=== PATIENT | male | born 1965 | race African-American/Black ===

== ENCOUNTER 2021-09-10 19:50 | Emergency (ER) | payer MEDICARE, MEDICAID ==
[~2021-09-10] VITALS: Ht 182.9 cm; Wt 76.0 kg
[2021-09-10 21:05] LABS: BASOPHILS % 0.2 % (0.0-2.0); EOSINOPHILS % 0.2 % (0.0-5.0); HEMATOCRIT. 36.4 % (42.0-52.0); HEMOGLOBIN. 12.2 g/dL (14.0-18.0); LYMPHOCYTES % 11.1 % (20.0-50.0); MEAN CORPUSCULAR HEMOGLOBIN 30.3 pg (28.0-32.0); MEAN CORPUSCULAR VOLUME 90.5 fL (80.0-94.0); MEAN PLATELET VOLUME 7.7 fl (7.4-10.4); MONOCYTES % 6.3 % (2.0-8.0); NEUTROPHILS % 82.2 % (40.0-76.0); PLATELET 285 x1000/uL (130-400); RED BLOOD CELL COUNT 4.02 mill/uL (4.7-6.1); RED CELL DISTRIBUTION WIDTH 16.5 % (11.6-14.6)
[2021-09-10 21:11] LABS: CHLORIDE 111 mEq/L (98-107)
[2021-09-10 21:19] LABS: ETHANOL BLOOD < 10 mg/dL
[2021-09-10 22:14] LABS: CLARITY URINE CLEAR (CLEAR); COLOR URINE YELLOW (YELLOW); KETONES URINE 2+ (NEGATIVE); LEUKOCYTE ESTERASE URINE NEGATIVE (NEGATIVE); NITRITE URINE NEGATIVE (NEGATIVE); OCCULT BLOOD URINE NEGATIVE (NEGATIVE); PH URINE 6.5 (4.5-8.0); PROTEIN URINE NEGATIVE (NEGATIVE); SPECIFIC GRAVITY URINE 1.024 (1.005-1.030)
[2021-09-10] MEDS ORDERED: HALOPERIDOL LACTATE 5MG/ML VIAL IM ONE (22:45)
[2021-09-10] MEDS ORDERED: LORAZEPAM 2MG/ML CPJ IM ONE (22:45)
[2021-09-10 22:56] LABS: *AMPHETAMINES SCREEN URINE NEGATIVE (NEGATIVE); *BARBITURATES SCREEN URINE NEGATIVE (NEGATIVE); *BENZODIAZEPINES SCREEN URINE PRESUMTIVE POSITIVE (NEGATIVE); *COCAINE SCREEN URINE NEGATIVE (NEGATIVE); CANNABINOID URINE SCREEN PRESUMTIVE POSITIVE (NEGATIVE); METHADONE URINE SCREEN NEGATIVE (NEGATIVE); OPIATES URINE SCREEN NEGATIVE (NEGATIVE); PHENCYCLIDINE URINE SCREEN NEGATIVE (NEGATIVE)
[2021-09-10] MEDS ORDERED: OLANZAPINE 10 MG/VIAL IM STA (22:56)
[2021-09-10] MEDS ORDERED: DEXTROSE 50% WATER 50ML SYRINGE IV ONE (23:30)
[2021-09-11] MEDS ORDERED: ZIPRASIDONE MESYLATE 20MG/VIAL IM ONE (00:45)
[2021-09-11] MEDS: OLANZAPINE 5MG TABLET PO SCH ×2 (12:30→21:14)
[2021-09-12] MEDS: OLANZAPINE 5MG TABLET PO SCH (08:35)
[2021-09-12 12:00] VITALS: BP 119/77
== END 2021-09-12 15:24 | disposition home or self-care (01) ==
LOC: ER 19:50
DX: E16.2 Hypoglycemia, unspecified (principal); I49.9 Cardiac arrhythmia, unspecified; Z20.822 Contact with and (suspected) exposure to COVID-19
CPT/HCPCS: 36415; 80053; 80305; 80307; 80320; 80329; 81003; 82962; 85025; 93005; 96372; 96374; 99291; C9803; J1630; J3486; J3490; U0003; U0005; G0480